=== PATIENT | male | born 1960 | race Caucasian/White ===

== ENCOUNTER 2017-11-28 09:20 | Inpatient (IN) | payer OTHER ==
[~2017-11-28] VITALS: Ht 185.4 cm; Wt 124.7 kg
--- NOTE | ~2017-11-28 | EKG ---
[address] [place] [address] ELECTROCARDIOGRAM REPORT Name: JOSE ROBERTO NOBLESARAH MORA Room #: 170-1 ADM IN M.R.#: [id number] Admission: 11/28/17 Attend Phys: Bijan Zapien MD Discharge: Date of : 58 Report #: [id number] THIS REPORT FOR: //name// [facility] ED Test Date: 2017-11-28 Test Time: 10:13:23 Pat Name: ELVER NOBLE Department: Room: Gender: M [employer]: ISAI : 1960 Requested By: Joce Heart Order Number: [id number] MD: Camron Zimmer Measurements Intervals [place] Rate: 89 P: 2 MS: 137 QRS: 8 QRSD: 97 T: -10 QT: 345 QTc: 420 Interpretive Statements Sinus rhythm Borderline T abnormalities, inferior leads Compared to ECG 07/22/2016 23:42:51 T-wave abnormality now present Electronically Signed On 11-28-2017 13:30:20 CDT by Camron Zimmer [email or web address] <ELECTRONICALLY SIGNED> By: Camron Zimmer MD 11/28/17 1330 [id number] [id number] Camron Zimmer MD /VASILE
[~2017-11-28 09:20] MED LIST: NOHOMEMEDICATIONS
[2017-11-28 09:36] VITALS: BP 146/99
[2017-11-28] MEDS ORDERED: LATUDA20 MG PO (09:40)
[2017-11-28] MEDS ORDERED: NEURONTIN 300300 M1 PO (09:41)
[2017-11-28 10:30] LABS: ABSOLUTE NEUTROPHILS 9.9 thou/uL (1.4-8.2); BASOPHILS 0.6 % (0.0-2.0); EOSINOPHILS 0.9 % (0.0-3.0); HEMATOCRIT 44.3 % (42.0-52.0); HEMOGLOBIN 15.4 gm/dL (14.0-18.0); LYMPHOCYTES 13.2 % (24.0-44.0); MCH 30.9 pg (26.0-34.0); MCHC 34.7 g/dL (28.0-37.0); MONOCYTES 9.2 % (1.0-8.0); PLATELET COUNT 173 thou/uL (150-400); POLYS 76.1 % (36.0-66.0); RBC 4.98 mil/uL (4.50-6.00); RDW 13.8 % (10.5-14.5)
[2017-11-28 10:38] LABS: ANION GAP 8 mmol/L (7-16); BUN 10 mg/dL (7-18); CALCIUM 9.4 mg/dL (8.5-10.1); CHLORIDE 100 mmol/L (98-107); CO2 28 mmol/L (21-32); CREATININE 0.8 mg/dL (0.7-1.3); GLUCOSE 163 mg/dL (74-106); POTASSIUM 3.7 mmol/L (3.5-5.1); SODIUM 136 mmol/L (136-145)
[2017-11-28 10:46] LABS: ALBUMIN 3.2 g/dL (3.4-5.0); LIPASE 70 U/L (73-393); SGOT 20 U/L (15-37); SGPT 42 U/L (30-65); TOTAL PROTEIN 7.7 g/dL (6.4-8.2); TROPONIN-I < 0.04 ng/mL (<0.06)
[2017-11-28 13:09] LABS: URINE BILIRUBIN NEGATIVE (Negative); URINE BLOOD NEGATIVE (Negative); URINE CLARITY CLEAR; URINE COLOR YELLOW; URINE GLUCOSE-RANDOM* NEGATIVE (Negative); URINE KETONES TRACE (Negative); URINE LEUKOCYTES-REFLEX NEGATIVE (Negative); URINE NITRITE-REFLEX NEGATIVE (Negative); URINE PROTEIN (DIPSTICK) NEGATIVE (Negative)
[2017-11-28 13:46] VITALS: BP 153/76
[2017-11-28 13:50] VITALS: BP 140/71
[2017-11-28 14:07] VITALS: BP 134/66
[2017-11-28] MEDS ORDERED: TRAZODONE HCL50 MG PO (14:15)
[2017-11-28] MEDS ORDERED: PERCOCET 10-321 EACH PO (14:16)
[2017-11-28 16:01] LABS: ALBUMIN 3.2 g/dL (3.4-5.0); TOTAL PROTEIN 7.9 g/dL (6.4-8.2); TSH 0.445 uIU/mL (0.358-3.740)
[2017-11-28 18:39] VITALS: BP 149/87
[2017-11-28 20:00] VITALS: BP 159/66
[2017-11-29 04:22] LABS: HEMATOCRIT 41.8 % (42.0-52.0); HEMOGLOBIN 14.3 gm/dL (14.0-18.0); MCH 30.6 pg (26.0-34.0); MCHC 34.3 g/dL (28.0-37.0); MCV 89.3 fL (80.0-100.0); RBC 4.68 mil/uL (4.50-6.00); RDW 13.9 % (10.5-14.5); WBC 11.9 thou/uL (4.0-11.0)
[2017-11-29 04:35] LABS: CALCIUM 8.7 mg/dL (8.5-10.1); CREATININE 0.7 mg/dL (0.7-1.3); MAGNESIUM 1.8 mg/dL (1.8-2.4); POTASSIUM 3.6 mmol/L (3.5-5.1)
[2017-11-29 05:30] VITALS: BP 153/93
[2017-11-29 07:15] VITALS: BP 141/71
[2017-11-29 16:30] VITALS: BP 133/66
[2017-11-29 20:50] VITALS: BP 132/68
[2017-11-30 04:55] VITALS: BP 130/60
[2017-11-30 05:04] LABS: HEMATOCRIT 42.6 % (42.0-52.0); HEMOGLOBIN 14.5 gm/dL (14.0-18.0); MCH 30.6 pg (26.0-34.0); RBC 4.73 mil/uL (4.50-6.00); RDW 13.8 % (10.5-14.5); WBC 10.5 thou/uL (4.0-11.0)
[2017-11-30 05:20] LABS: CALCIUM 8.9 mg/dL (8.5-10.1); CREATININE 0.7 mg/dL (0.7-1.3); POTASSIUM 3.8 mmol/L (3.5-5.1)
[2017-11-30 08:00] VITALS: BP 120/73
[2017-11-30] MEDS ORDERED: PERCOCET 10-321 EACH PO (14:11)
[2017-11-30] MEDS ORDERED: AUGMENTIN 875-1 EACH PO (14:12)
[2017-11-30 15:04] VITALS: BP 120/73
[2017-12-01 12:01] VITALS: BP 120/73
[2017-12-01 13:45] VITALS: BP 120/73
[2017-12-02 15:03] VITALS: BP 120/73
== END 2017-11-30 15:46 | disposition home health service (06) | DRG 444 ==
LOC: ER 09:20 → EROBS 12:25 → 4E 12:25
PROVIDERS: Emergency Medicine; Internal Medicine
PROC: 0F9430Z Drainage of Gallbladder with Drainage Device, Percutaneous Approach (ICD-10-PCS; principal; 2017-11-28)
DX: K81.1 Chronic cholecystitis (principal); J18.9 Pneumonia, unspecified organism; E44.1 Mild protein-calorie malnutrition; F41.9 Anxiety disorder, unspecified; F43.10 Post-traumatic stress disorder, unspecified; F17.210 Nicotine dependence, cigarettes, uncomplicated; Z79.899 Other long term (current) drug therapy; Z68.36 Body mass index [BMI] 36.0-36.9, adult
CPT/HCPCS: 10084